=== PATIENT | female | born 1955 | race Caucasian/White ===

== ENCOUNTER 2017-04-01 08:33 | Inpatient (IN) | payer OTHER, MEDICARE ==
[~2017-04-01] VITALS: Ht 170.2 cm; Wt 61.4 kg
[~2017-04-01 08:33] MED LIST: ARMOUR PO; ARMOUR THYROID60 MG PO; ASPIR-LOW81 MG PO; BENTYL10 MG PO; DOXYCYCLINE HY100 M3 PO; EPIPEN 2-PAK 0.3 MG; LORAZEPAM0.5 MG; LORAZEPAM0.5 MG PO; MAGNESIUM250 M1 PO; MOTRIN600 MG PO; OSTERA TABLET1 EACH PO; TESTIM5 GM TD; ULTRACET1 TABLET PO; ULTRAM50 MG PO; VIT C 500 MG-E500 MG PO; [UNRECOGNIZED DRUG - OTHER] PO
[2017-04-01] MEDS ORDERED: ARMOUR THYROID60 M1 PO (08:48)
[2017-04-01] MEDS ORDERED: POTASSIUM CHLO10 ME4 PO (08:49)
[2017-04-01] MEDS ORDERED: DILTIAZEM 24HR180 MG PO (08:50)
[2017-04-01] MEDS ORDERED: HYDRALAZINE HCL10 MG PO (08:50)
[2017-04-01] MEDS ORDERED: VITAMIN D31000 UNIT PO (08:51)
[2017-04-01] MEDS ORDERED: ASCORBIC ACID500 M3 PO (08:51)
[2017-04-01] MEDS ORDERED: GLUCOSE4 GM PO (08:51)
[2017-04-01] MEDS ORDERED: L-LYSINE500 M1 PO (08:52)
[2017-04-01 09:53] LABS: HEMATOCRIT 35.8 % (36.0-46.0); MCH 31.1 PG (29.0-34.0); MCV 94.2 FL (83-99); MEAN PLAT.VOLUME 9.3 uM^3 (9.5-12.4); PLATELET COUNT 290 K/uL (156-360); RBC DIS.WIDTH-CV 12.6 % (11.8-14.6); RBC DIS.WIDTH-SD 43.8 % (39-53); WHITE BLOOD COUNT 12.1 K/uL (4.1-10.2)
[2017-04-01 10:03] LABS: CHLORIDE 101 mEq/L (99-109); POTASSIUM 3.5 mEq/L (3.7-5.4); SODIUM 137 mEq/L (136-147)
[2017-04-01 10:05] LABS: GLUCOSE 106 mg/dL (70-99)
[2017-04-01 10:07] LABS: ANION GAP 7 MEQ/L (2-14); PROTHROMBIN TIME 10.2 (9.2-11.2); PTT 24.7 (25-32); TOTAL BILIRUBIN 0.5 mg/dL (0.0-1.0)
[2017-04-01 10:09] LABS: ALKALINE PHOSPHATASE 129 IU/L (3-129); GFR ESTIMATE (CALCULATED) > 59 mL/min/
[2017-04-01 10:10] LABS: UREA NITROGEN (BUN) 12 mg/dL (9-23)
[2017-04-01 22:35] LABS: HEMATOCRIT 29.6 % (36.0-46.0); MCH 31.1 PG (29.0-34.0); MCHC 32.8 G/DL (30.0-36.0); MCV 94.9 FL (83-99); MEAN PLAT.VOLUME 9.3 uM^3 (9.5-12.4); PLATELET COUNT 263 K/uL (156-360); RBC DIS.WIDTH-CV 12.9 % (11.8-14.6); RBC DIS.WIDTH-SD 44.3 % (39-53); RED BLOOD COUNT 3.12 M/uL (3.80-5.20); WHITE BLOOD COUNT 10.8 K/uL (4.1-10.2)
[2017-04-02 00:09] VITALS: BP 162/74
[2017-04-02 04:37] VITALS: BP 114/60
[2017-04-02 05:07] LABS: HEMATOCRIT 27.6 % (36.0-46.0); MCV 94.8 FL (83-99)
[2017-04-02 05:33] LABS: ANION GAP 9 MEQ/L (2-14); CHLORIDE 97 MEQ/L (99-109); GFR ESTIMATE (CALCULATED) > 59 mL/min/; GLUCOSE 98 mg/dL (70-99); POTASSIUM 3.1 MEQ/L (3.7-5.4); SAMPLE HEMOLYSIS CHECK 0; SAMPLE ICTERIC CHECK 0; SAMPLE LIPEMIA CHECK 0; SODIUM 134 MEQ/L (136-147); UREA NITROGEN (BUN) 19 mg/dL (9-23)
[2017-04-02 08:22] VITALS: BP 123/62
[2017-04-02 12:18] VITALS: BP 138/63
[2017-04-02 16:25] VITALS: BP 135/63
[2017-04-02 23:45] VITALS: BP 169/76
[2017-04-03 04:49] LABS: HEMATOCRIT 23.7 % (36.0-46.0); MCV 92.9 FL (83-99)
[2017-04-03 07:52] VITALS: BP 152/66
[2017-04-03 16:12] VITALS: BP 160/75
[2017-04-03 23:37] VITALS: BP 160/73
[2017-04-04 05:51] LABS: HEMATOCRIT 23.2 % (36.0-46.0); MCH 31.7 PG (29.0-34.0); MCHC 33.6 G/DL (30.0-36.0); MCV 94.3 FL (83-99); MEAN PLAT.VOLUME 9.6 uM^3 (9.5-12.4); PLATELET COUNT 214 K/uL (156-360); WHITE BLOOD COUNT 7.8 K/uL (4.1-10.2)
[2017-04-04 06:01] LABS: RED BLOOD COUNT 2.46 M/uL (3.80-5.20)
[2017-04-04 06:14] LABS: ALKALINE PHOSPHATASE 91 IU/L (3-129); ANION GAP 7 MEQ/L (2-14); CHLORIDE 102 MEQ/L (99-109); GFR ESTIMATE (CALCULATED) > 59 mL/min/; GLUCOSE 109 mg/dL (70-99); SAMPLE HEMOLYSIS CHECK 0; SAMPLE ICTERIC CHECK 0; SAMPLE LIPEMIA CHECK 0; SODIUM 136 MEQ/L (136-147); TOTAL BILIRUBIN 0.5 MG/DL (0.0-1.0); UREA NITROGEN (BUN) 6 mg/dL (9-23)
[2017-04-04 06:17] LABS: POTASSIUM 3.8 MEQ/L (3.7-5.4)
[2017-04-04 08:13] VITALS: BP 127/69
[2017-04-04 15:57] VITALS: BP 151/70
[2017-04-04 16:41] VITALS: BP 142/76
[2017-04-04 16:57] VITALS: BP 142/68
[2017-04-04 20:28] LABS: HEMATOCRIT 23.2 % (36.0-46.0); MCH 31.3 PG (29.0-34.0); MCHC 33.2 G/DL (30.0-36.0); MCV 94.3 FL (83-99); MEAN PLAT.VOLUME 9.8 uM^3 (9.5-12.4); PLATELET COUNT 218 K/uL (156-360); RBC DIS.WIDTH-CV 13.2 % (11.8-14.6); RBC DIS.WIDTH-SD 45.3 % (39-53); RED BLOOD COUNT 2.46 M/uL (3.80-5.20); WHITE BLOOD COUNT 9.5 K/uL (4.1-10.2)
[2017-04-04 23:48] VITALS: BP 158/76
[2017-04-05 06:11] LABS: HEMATOCRIT 26.1 % (36.0-46.0); MCH 31.3 PG (29.0-34.0); MCHC 32.6 G/DL (30.0-36.0); MEAN PLAT.VOLUME 9.7 uM^3 (9.5-12.4); RBC DIS.WIDTH-CV 13.2 % (11.8-14.6); RBC DIS.WIDTH-SD 46.3 % (39-53); RED BLOOD COUNT 2.72 M/uL (3.80-5.20); WHITE BLOOD COUNT 9.3 K/uL (4.1-10.2)
[2017-04-05 06:14] LABS: PLATELET COUNT 311 K/uL (156-360)
[2017-04-05 06:41] LABS: ANION GAP 11 MEQ/L (2-14); CHLORIDE 100 MEQ/L (99-109); GFR ESTIMATE (CALCULATED) > 59 mL/min/; GLUCOSE 93 mg/dL (70-99); POTASSIUM 3.9 MEQ/L (3.7-5.4); SAMPLE HEMOLYSIS CHECK 0; SAMPLE ICTERIC CHECK 0; SAMPLE LIPEMIA CHECK 0; SODIUM 137 MEQ/L (136-147); UREA NITROGEN (BUN) 11 mg/dL (9-23)
[2017-04-05 07:29] VITALS: BP 105/63
[2017-04-05 09:51] VITALS: BP 118/80
[2017-04-05] MEDS ORDERED: MAGNESIUM CITR100 MG PO (13:16)
[2017-04-05 16:13] VITALS: BP 123/60
[2017-04-05 23:36] VITALS: BP 141/65
[2017-04-06 05:29] LABS: MCH 31.9 PG (29.0-34.0); MCHC 33.8 G/DL (30.0-36.0); MCV 94.5 FL (83-99); MEAN PLAT.VOLUME 9.6 uM^3 (9.5-12.4); PLATELET COUNT 324 K/uL (156-360); RBC DIS.WIDTH-CV 13.2 % (11.8-14.6); RBC DIS.WIDTH-SD 44.9 % (39-53); RED BLOOD COUNT 2.54 M/uL (3.80-5.20); WHITE BLOOD COUNT 7.5 K/uL (4.1-10.2)
[2017-04-06 05:53] LABS: ALKALINE PHOSPHATASE 97 IU/L (3-129); ANION GAP 9 MEQ/L (2-14); CHLORIDE 100 MEQ/L (99-109); GFR ESTIMATE (CALCULATED) > 59 mL/min/; GLUCOSE 89 mg/dL (70-99); SAMPLE HEMOLYSIS CHECK 0; SAMPLE ICTERIC CHECK 0; SAMPLE LIPEMIA CHECK 0; SODIUM 135 MEQ/L (136-147); UREA NITROGEN (BUN) 14 mg/dL (9-23)
[2017-04-06 05:54] LABS: TOTAL BILIRUBIN 0.7 MG/DL (0.0-1.0)
[2017-04-06 07:46] VITALS: BP 122/77
[2017-04-06 16:30] VITALS: BP 152/74
[2017-04-06] MEDS ORDERED: HYDROCODON-ACE1 EAC9 PO (17:26)
[2017-04-06] MEDS ORDERED: LOVENOX40 MG/0.4 SC (17:26)
[2017-04-06] MEDS ORDERED: TYLENOL REGULA325 MG PO (17:27)
[2017-04-06] MEDS ORDERED: DOCUSATE SODIU100 MG PO (17:27)
[2017-04-06] MEDS ORDERED: PANTOPRAZOLE SO40 MG PO (17:28)
[2017-04-06] MEDS ORDERED: MILK OF MAGNESI10 ML PO (17:28)
[2017-04-06] MEDS ORDERED: COMPAZINE25 M1 PR (17:28)
[2017-04-06 23:41] VITALS: BP 162/80
[2017-04-07 05:56] LABS: HEMATOCRIT 23.5 % (36.0-46.0); MCH 31.6 PG (29.0-34.0); MCHC 33.2 G/DL (30.0-36.0); MCV 95.1 FL (83-99); MEAN PLAT.VOLUME 9.6 uM^3 (9.5-12.4); PLATELET COUNT 399 K/uL (156-360); RBC DIS.WIDTH-CV 13.3 % (11.8-14.6); RBC DIS.WIDTH-SD 45.5 % (39-53); RED BLOOD COUNT 2.47 M/uL (3.80-5.20); WHITE BLOOD COUNT 7.4 K/uL (4.1-10.2)
[2017-04-07 07:23] VITALS: BP 134/90
[2017-04-07] MEDS ORDERED: THERAGRAN1 TABLET PO (14:58)
[2017-04-07] MEDS ORDERED: BENADRYL25 MG IM (14:58)
[2017-04-07] MEDS ORDERED: LIDODERM 5% P1 PATCH TD (14:59)
[2017-04-07] MEDS ORDERED: SENOKOT S,PE1 TABLET PO (15:00)
[2017-04-07] MEDS ORDERED: REGLAN10 MG PO ×2 (15:01→15:02)
[2017-04-07] MEDS ORDERED: NORCO 5/3251 TABLET PO (15:03)
[2017-04-07] MEDS ORDERED: ZOFRAN4 MG IV (15:04)
[2017-04-07] MEDS ORDERED: MORPHINE SULFA1 DOSE IV (15:05)
== END 2017-04-07 14:01 | DRG 481 ==
LOC: EME → EDBD 08:33 → 3EAST 18:54 → EDOF 18:54 → 3EAST 22:45
PROVIDERS: Family Medicine; Internal Medicine; Nurse Practitioner Family; Orthopaedic Surgery
PROC: 0QSB06Z Reposition Right Lower Femur with Intramedullary Internal Fixation Device, Open Approach (ICD-10-PCS; principal; 2017-04-01)
PROC: 30233N1 Transfusion of Nonautologous Red Blood Cells into Peripheral Vein, Percutaneous Approach (ICD-10-PCS; 2017-04-04)
DX: S72.141A Displaced intertrochanteric fracture of right femur, initial encounter for closed fracture (principal); D62 Acute posthemorrhagic anemia; I10 Essential (primary) hypertension; E87.6 Hypokalemia; E03.9 Hypothyroidism, unspecified; W18.39XA Other fall on same level, initial encounter; M85.80 Other specified disorders of bone density and structure, unspecified site; M81.0 Age-related osteoporosis without current pathological fracture; K21.9 Gastro-esophageal reflux disease without esophagitis; Z91.040 Latex allergy status; Z90.49 Acquired absence of other specified parts of digestive tract; Z90.710 Acquired absence of both cervix and uterus; Z80.0 Family history of malignant neoplasm of digestive organs
CPT/HCPCS: 73501; 73502; 73552; 73701; 76000; 80048; 80053; 81003; 84132; 84484; 85014; 85018; 85027; 85610; 85730; 86870; 86880; 86900; 86901; 86920; 93005; 97530 GP; 99281; 99284; C1713; C9113; J0131; J1170; J1200; J1650; J2060; J2175; J2250; J2270; J2405; J2765; J3010; P9016

== ENCOUNTER 2017-04-06 11:12 | Inpatient (IN) | payer OTHER, MEDICARE ==
[~2017-04-06] VITALS: Ht 170.2 cm; Wt 62.2 kg
[~2017-04-06 11:12] MED LIST changes: +ARMOUR THYROID60 M1 PO; +ASCORBIC ACID500 M3 PO; +DILTIAZEM 24HR180 MG PO; +GLUCOSE4 GM PO; +HYDRALAZINE HCL10 MG PO; +L-LYSINE500 M1 PO; +MAGNESIUM CITR100 MG PO; +POTASSIUM CHLO10 ME4 PO; +VITAMIN D31000 UNIT PO
[2017-04-06] MEDS ORDERED: HYDROCODON-ACE1 EAC9 PO (17:26)
[2017-04-06] MEDS ORDERED: LOVENOX40 MG/0.4 SC (17:26)
[2017-04-06] MEDS ORDERED: DOCUSATE SODIU100 MG PO (17:27)
[2017-04-06] MEDS ORDERED: TYLENOL REGULA325 MG PO (17:27)
[2017-04-06] MEDS ORDERED: MILK OF MAGNESI10 ML PO (17:28)
[2017-04-06] MEDS ORDERED: COMPAZINE25 M1 PR (17:28)
[2017-04-06] MEDS ORDERED: PANTOPRAZOLE SO40 MG PO (17:28)
[2017-04-07 14:30] VITALS: BP 144/78
[2017-04-07] MEDS ORDERED: BENADRYL25 MG IM (14:58)
[2017-04-07] MEDS ORDERED: THERAGRAN1 TABLET PO (14:58)
[2017-04-07] MEDS ORDERED: LIDODERM 5% P1 PATCH TD (14:59)
[2017-04-07] MEDS ORDERED: SENOKOT S,PE1 TABLET PO (15:00)
[2017-04-07] MEDS ORDERED: REGLAN10 MG PO ×2 (15:01→15:02)
[2017-04-07] MEDS ORDERED: NORCO 5/3251 TABLET PO (15:03)
[2017-04-07] MEDS ORDERED: ZOFRAN4 MG IV (15:04)
[2017-04-07] MEDS ORDERED: MORPHINE SULFA1 DOSE IV (15:05)
[2017-04-07 17:10] LABS: HEMATOCRIT 26.1 % (36.0-46.0); MCH 31.1 PG (29.0-34.0); MCHC 32.6 G/DL (30.0-36.0); MCV 95.6 FL (83-99); MEAN PLAT.VOLUME 9.5 uM^3 (9.5-12.4); PLATELET COUNT 457 K/uL (156-360); RBC DIS.WIDTH-CV 13.4 % (11.8-14.6); RBC DIS.WIDTH-SD 45.6 % (39-53); RED BLOOD COUNT 2.73 M/uL (3.80-5.20)
[2017-04-07 17:26] LABS: ALKALINE PHOSPHATASE 113 IU/L (3-129); ANION GAP 13 MEQ/L (2-14); CHLORIDE 94 MEQ/L (99-109); GFR ESTIMATE (CALCULATED) > 59 mL/min/; GLUCOSE 97 mg/dL (70-99); POTASSIUM 3.9 MEQ/L (3.7-5.4); SAMPLE HEMOLYSIS CHECK 0; SAMPLE ICTERIC CHECK 0; SAMPLE LIPEMIA CHECK 0; SODIUM 133 MEQ/L (136-147); TOTAL BILIRUBIN 0.9 MG/DL (0.0-1.0); UREA NITROGEN (BUN) 18 mg/dL (9-23)
[2017-04-07 23:37] VITALS: BP 185/81
[2017-04-08] VITALS (7 sets, daily range): BP systolic 133–189; BP diastolic 67–107
[2017-04-08 13:22] LABS: HEMATOCRIT 26.8 % (36.0-46.0); MCV 95.4 FL (83-99)
[2017-04-09 05:27] VITALS: BP 142/78
[2017-04-09 08:15] VITALS: BP 110/63
[2017-04-09 15:25] VITALS: BP 131/67
[2017-04-10 06:02] VITALS: BP 138/65
[2017-04-10 08:28] LABS: BASOPHIL COUNT 0.1 K/uL (0-0.1); EOSINOPHIL (%) 1.9 % (0-5); EOSINOPHIL COUNT 0.1 K/uL (0-0.3); HEMATOCRIT 26.7 % (36.0-46.0); IMMATURE GRANULOCYTE (%) 1.9 % (0.0-0.7); IMMATURE GRANULOCYTE COUNT 0.1 K/uL; INSTRUMENT ABS NEUTROPHIL CT 5.4 K/uL; LYMPHOCYTE COUNT 1.3 K/uL (1.0-2.8); MCH 32.2 PG (29.0-34.0); MCHC 33.3 G/DL (30.0-36.0); MCV 96.7 FL (83-99); MONOCYTE (%) 7.5 % (3-12); MONOCYTE COUNT 0.6 K/uL (0-0.8); NEUTROPHIL COUNT 5.4 K/uL (1.8-6.4); RBC DIS.WIDTH-CV 14.3 % (11.8-14.6); RBC DIS.WIDTH-SD 47.8 % (39-53); RED BLOOD COUNT 2.76 M/uL (3.80-5.20); WHITE BLOOD COUNT 7.6 K/uL (4.1-10.2)
[2017-04-10 12:30] LABS: PLATELET COUNT 645 K/uL (156-360)
[2017-04-10 15:39] VITALS: BP 134/64
[2017-04-10 21:32] VITALS: BP 145/71
[2017-04-11 06:21] VITALS: BP 161/72
[2017-04-11 07:08] LABS: HEMATOCRIT 25.9 % (36.0-46.0); MCH 32.3 PG (29.0-34.0); MCHC 33.2 G/DL (30.0-36.0); MCV 97.4 FL (83-99); MEAN PLAT.VOLUME 9.2 uM^3 (9.5-12.4); PLATELET COUNT 633 K/uL (156-360); RBC DIS.WIDTH-CV 14.7 % (11.8-14.6); RBC DIS.WIDTH-SD 48.7 % (39-53); RED BLOOD COUNT 2.66 M/uL (3.80-5.20); WHITE BLOOD COUNT 7.1 K/uL (4.1-10.2)
[2017-04-11 07:54] LABS: INTER. NORMALIZED RATIO 1.1; PROTHROMBIN TIME 10.7 (9.2-11.2); PTT 26.2 (25-32)
[2017-04-11 13:05] VITALS: BP 170/81
[2017-04-12 05:54] VITALS: BP 139/76
[2017-04-12 15:38] VITALS: BP 133/83
[2017-04-12] MEDS ORDERED: LOVENOX40 MG/0.4 SC (22:14)
[2017-04-12] MEDS ORDERED: FLORASTOR250 MG PO (22:14)
[2017-04-12] MEDS ORDERED: NORCO 5/3251 TABLET PO (22:14)
[2017-04-13 05:35] VITALS: BP 171/81
[2017-04-13 07:44] LABS: HEMATOCRIT 28.7 % (36.0-46.0); MCH 32.5 PG (29.0-34.0); MCHC 33.1 G/DL (30.0-36.0); MCV 98.3 FL (83-99); MEAN PLAT.VOLUME 9.2 uM^3 (9.5-12.4); PLATELET COUNT 664 K/uL (156-360); RBC DIS.WIDTH-CV 15.3 % (11.8-14.6); RBC DIS.WIDTH-SD 53.1 % (39-53); RED BLOOD COUNT 2.92 M/uL (3.80-5.20); WHITE BLOOD COUNT 7.6 K/uL (4.1-10.2)
[2017-04-13 08:22] LABS: ANION GAP 10 MEQ/L (2-14); CHLORIDE 96 MEQ/L (99-109); GFR ESTIMATE (CALCULATED) > 59 mL/min/; GLUCOSE 91 mg/dL (70-99); POTASSIUM 3.3 MEQ/L (3.7-5.4); SAMPLE HEMOLYSIS CHECK 0; SAMPLE ICTERIC CHECK 0; SAMPLE LIPEMIA CHECK 0; SODIUM 135 MEQ/L (136-147); UREA NITROGEN (BUN) 13 mg/dL (9-23)
== END 2017-04-13 16:05 | disposition home health service (06) | DRG 560 ==
LOC: 3WEST 11:12
PROVIDERS: Anesthesiology; Internal Medicine Hematology & Oncology; Physical Medicine & Rehabilitation Pain Medicine; Psychiatry & Neurology Neurology
PROC: F07M0ZZ Range of Motion and Joint Mobility Treatment of Musculoskeletal System - Whole Body (ICD-10-PCS; principal; 2017-04-07)
DX: S72.141D Displaced intertrochanteric fracture of right femur, subsequent encounter for closed fracture with routine healing (principal); W18.39XD Other fall on same level, subsequent encounter; D62 Acute posthemorrhagic anemia; E87.1 Hypo-osmolality and hyponatremia; I10 Essential (primary) hypertension; E03.9 Hypothyroidism, unspecified; E87.6 Hypokalemia; R26.2 Difficulty in walking, not elsewhere classified; M85.80 Other specified disorders of bone density and structure, unspecified site; D47.3 Essential (hemorrhagic) thrombocythemia
CPT/HCPCS: 80048; 80053; 85014; 85018; 85025; 85027; 85610; 85730; 86880; 97110 GO; 97530 GP; J1200; J1650; J1756; J7050